=== PATIENT | female | born 1975 ===

== ENCOUNTER 2018-05-25 23:37 | Emergency (ER) | payer OTHER ==
--- NOTE | 2018-05-26 02:43 | ED PDOC ---
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 Patient has been taking Diclofenac for pain. Additionally, patient is complaining of dizziness that started yesterday. Patient has had similar symptoms in the past whenever she changes positions from lying down to standing. She describes dizziness as room spinning and falling down afterwards associated with nausea and a mild headache. She denies any chest pain or shortness of breath. No further medical complaints. PMD: None provided. Past Medical History Reviewed: Historical Data, Nursing Documentation, Vital Signs Vital Signs: Last Vital Signs Temp 98.8 F 05/25/18 23:53 Pulse 67 05/25/18 23:53 Resp 16 05/25/18 23:53 BP 151/75 H 05/25/18 23:53 Pulse Ox 98 05/25/18 23:53 - Medical History PMH: HTN - Surgical History Surgical History: No Surg Hx - Family History Family History: States: Unknown Family Hx - Allergies Allergies/Adverse Reactions: Allergies Allergy/AdvReac Type Severity Reaction Status Date / Time No Known Allergies Allergy Verified 05/25/18 23:56 Review of Systems ROS Statement: Except As Marked, All Systems Reviewed And Found Negative Cardiovascular: Negative for: Chest Pain Respiratory: Negative for: Shortness of Breath Gastrointestinal: Positive for: Nausea Musculoskeletal: Positive for: Foot Pain (right ankle pain) Neurological: Positive for: Headache (mild), Dizziness Physical Exam - Reviewed Nursing Documentation Reviewed: Yes Vital Signs Reviewed: Yes - Physical Exam Appears: Positive for: No Acute Distress Head Exam: Positive for: ATRAUMATIC, NORMAL INSPECTION, NORMOCEPHALIC Skin: Positive for: Normal Color, Warm, Dry Eye Exam: Positive for: Normal appearance, EOMI, PERRL Neck: Positive for: Normal, Painless ROM, Supple Cardiovascular/Chest: Positive for: Regular Rate, Rhythm. Negative for: Murmur Respiratory: Positive for: Normal Breath Sounds. Negative for: Respiratory Distress Gastrointestinal/Abdominal: Positive for: Normal Exam, Soft. Negative for: Tenderness Back: Positive for: Normal Inspection. Negative for: L CVA Tenderness, R CVA Tenderness Extremity: Positive for: Normal ROM (Full ROM of right ankle), Tenderness (to lateral malleolus of right ankle), Other (right ankle neurovascularly intact). 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 Negative for: Motor/Sensory Deficits - ECG O2 Sat by Pulse Oximetry: 98 (RA) Pulse Ox Interpretation: Normal Medical Decision Making Medical Decision Making: Time: 01:07 A/P: 43 year old female with history of HTN presenting for possible right ankle sprain vs fracture. Will obtain x-ray. 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 Initial Plan: --EKG --Meclizine 50 mg PO --Ibuprofen 600mg PO --Ankle right 3 views routine [RAD] --Reevaluation 04:00 --Patient has fibular fracture on x-ray, podiatry aware --No longer having headache or dizziness 07:00 --Pending podiatry eval, will endorse to Dr. Jovel Scribe Attestation: Documented by David Dia, acting as a scribe for Paul Zelaya MD Provider Scribe Attestation: All medical record entries made by the Scribe were at my direction and personally dictated by me. I have reviewed the chart and agree that the record accurately reflects my personal performance of the history, physical exam, medical decision making, and the department course for this patient. I have also personally directed, reviewed, and agree with the discharge instructions and disposition. Disposition - Clinical Impression Clinical Impression: Dizziness, Fibula fracture - Disposition Disposition: Transfer of Care Disposition Time: 07:00 Condition: STABLE Forms: [facility] (Togolese) Patient Signed Over To: Amanda Jovel Handoff Comments: pending podiatry consult
--- NOTE | 2018-05-26 07:38 | ED PDOC ---
- ECG O2 Sat by Pulse Oximetry: 98 (RA) Pulse Ox Interpretation: Normal Medical Decision Making Medical Decision Making: Time: 0700 -- Patient endorsed to me by Dr. Zelaya, pending podiatry consult. Scribe Attestation: Documented by Sarah Bardales, acting as a scribe Megan Jovel MD. Provider Scribe Attestation: All medical record entries made by the Scribe were at my direction and personally dictated by me. I have reviewed the chart and agree that the record accurately reflects my personal performance of the history, physical exam, medical decision making, and the department course for this patient. I have also personally directed, reviewed, and agree with the discharge instructions and disposition. Disposition Doctor Will See Patient In The: Office Counseled Patient/Family Regarding: Diagnosis, Need For Followup - Clinical Impression Clinical Impression: Dizziness, Fibula fracture - POA Present On Arrival: Falls Or Trauma - Disposition Referrals: Podiatry Clinic [Outside] Disposition: Routine/Home Disposition Time: 09:40 Condition: STABLE Instructions: Fibula Fracture (DC) Forms: [facility] (Telugu)
--- NOTE | 2018-05-26 09:40 | CP.PCM.CON ---
History of Present Illness - History of Present Illness History of Present Illness: Podiatry consult note for Dr. Matias 43 year old female, with a past medical history of HTN, who presents to the emergency department complaining of a right ankle pain since injury two weeks ago. Patient has been taking Diclofenac for pain. Additionally, patient is complaining of dizziness that started yesterday. Patient has had similar symptoms in the past whenever she changes positions from lying down to standing. Patient states the right ankle was initially very swollen however with the use of topical cream the swelling has gone down, however pain has remained about the same. Patient states she has been trying to rest as much as possible and has been using flipflops to get aorund. No further pedal complaints. PMD: None provided. 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 Allergies: None Social: denies smoking or drinking alcohol Past Patient History - Past Social History Smoking Status: Never Smoked - CARDIAC Hx Hypertension: Yes - PSYCHIATRIC Hx Substance Use: No - SURGICAL HISTORY Hx Surgeries: Yes Hx Section: Yes - ANESTHESIA Hx Anesthesia: Yes Hx Anesthesia Reactions: No Hx Malignant Hyperthermia: No Meds Home Medications: Home Medication List Medication Instructions Recorded Confirmed Type Meclizine [Meclizine*] 25 mg PO Q8H #15 tab 05/26/18 Rx Allergies/Adverse Reactions: Allergies Allergy/AdvReac Type Severity Reaction Status Date / Time No Known Allergies Allergy Verified 05/25/18 23:56 Physical Exam - Constitutional Appears: Well, Non-toxic, No Acute Distress - Head Exam Head Exam: ATRAUMATIC, NORMOCEPHALIC - Eye Exam Eye Exam: Normal appearance - ENT Exam ENT Exam: Mucous Membranes Moist - Cardiovascular Exam Cardiovascular Exam: REGULAR RHYTHM, +S1, +S2 - Extremities Exam Additional comments: Right lower extremity exam: vascular: Dp/PT 2/4, CFT <3 secs x 5, TG warm to warm, no edema or erythema noted. derm: no open lesions, minimal edema noted posterior and distal to lateral malleolus, no clinical signs of infection, no ecchymosis or erythema neuro: protective sensation intact via ipswich 05/30 ortho: pain with ROM of the ankle, pain on direct palpation to the lateral malleolus, minimal pain on palpation to the deltoid ligament, no pain on calf compression, no pain on base of fifth met - Neurological Exam Neurological exam: Alert, Oriented x3 Results - Vital Signs Recent Vital Signs: Last Vital Signs Temp 98.0 F 05/26/18 06:43 Pulse 71 05/26/18 06:43 Resp 16 05/26/18 06:43 BP 111/72 05/26/18 06:43 Pulse Ox 98 05/26/18 07:37 - Labs Labs: Laboratory Results - last 24 hr 05/26/18 01:43 POC Glucose (mg/dL) 102 Assessment & Plan - Assessment and Plan (Free Text) Assessment: 43 yo female with pmhx of hypertension seen and evaluated in the ED for right lateral malleolus fracture Plan: Patient seen and evaluated chart labs vitals and x-rays reviewed X-ray of the right ankle shows osseous healing of the fibular fracture with malalignment Patient educated on risks, complications and benefits of surgical versus conservative approach Patient opts for surgical approach Wellpadded posterior splint applied Patient to remain NWB to RLE with the use of crutches Patient to be scheduled for ORIF of right fibula within the next two weeks. Patient to follow up in podiatry clinic after surgery Patient to rest, ice and elevate RLE All questions answered Thank you for the consult
[2018-05-26 12:01] VITALS: BP 121/68; PULSE 70; RESP 18; TEMP 97.8; O2SAT 100
--- NOTE | 2018-05-26 13:34 | RAD ---
Date of service: 05/26/2018 PROCEDURE: Right Ankle Radiographs. HISTORY: trauma 2 weeks ago COMPARISON: None available. TECHNIQUE: 3 views obtained. FINDINGS: BONES: There is a minimally displaced oblique fracture traversing the distal right fibula with what appears represent early callus formation. In addition, there is a tiny armand of bone seen within the soft tissues subjacent to the tip of the medial malleolus consistent with a tiny avulsion fracture. Diffuse circumferential soft tissue swelling lateral greater than medial. JOINTS: Questionable mild widening of the medial aspect of the ankle mortise. SOFT TISSUES: As above OTHER FINDINGS: None. IMPRESSION: There is a minimally displaced oblique fracture traversing the distal right fibula with what appears represent early callus formation. In addition, there is a tiny armand of bone seen within the soft tissues subjacent to the tip of the medial malleolus consistent with a tiny avulsion fracture. Diffuse circumferential soft tissue swelling lateral greater than medial. Note that this report was placed in PA review folder follow up
--- NOTE | 2018-05-27 09:12 | CARD ---
APPROVED REPORT Date of service: 05/26/2018 EKG Measurement Heart [id number] <Conclusion> Normal sinus rhythm Minimal voltage criteria for LVH, may be normal variant Borderline ECG
== END 2018-05-26 11:59 | disposition home or self-care (01) ==
LOC: EDBD 23:37 → H.ER 23:37
DX: R42 Dizziness and giddiness (principal); S82.61XA Displaced fracture of lateral malleolus of right fibula, initial encounter for closed fracture; I10 Essential (primary) hypertension; W18.30XA Fall on same level, unspecified, initial encounter; R51 Headache